=== PATIENT | male | born 1955 | race Caucasian/White ===

== ENCOUNTER 2020-05-05 08:43 | Outpatient (CLI) | payer BC, SELFPAY ==
--- NOTE | ~2020-05-05 | CT_ITS ---
EXAMINATION: CT lung screening DATE: 05/05/2020 09:36 INDICATION: History of tobacco use TECHNIQUE: Computed tomography (CT) of the chest was performed without intravenous contrast. The dose -length product was 301.52 mGy-cm. Automated exposure control and iterative reconstruction technique were employed. COMPARISON: None FINDINGS: Heart size normal. No significant pleural or pericardial effusion. No thoracic lymphadenopa thy. Heart size normal. There is atherosclerosis of the aorta and coronary arteries. There is a 2 mm nonobstructing left renal stone. There is moderate emphysema. No endobronchial lesions. No suspicious pulmonary nodules or masses. Mild thoracic spondylosis. There is accentuated thoracic kyphosis. IMPRESSION: 1. Lung-RADS category 1: Negative. Continue annual screening with noncontrast low-dose chest CT in 12 months. Reviewed, dictated and finalized at location B. IMPRESSION: 1. Lung-RADS category 1: Negative. Continue annual screening with noncontrast l ow-dose chest CT in 12 months.
== END 2020-05-05 08:44 | disposition home or self-care (01) ==
PROVIDERS: PCP Internal Medicine; Visit Provider Internal Medicine
DX: Z12.2 Encounter for screening for malignant neoplasm of respiratory organs (principal); Z87.891 Personal history of nicotine dependence
CPT/HCPCS: G0297

== ENCOUNTER 2020-11-26 10:27 | Outpatient (CLI) | payer BC, SELFPAY ==
--- NOTE | ~2020-11-26 | XR_ITS ---
XR knee RT 3V DATE: 11/26/2020 10:52 INDICATION: Medial knee pain after stepping into a hole TECHNIQUE: [place], AP, lateral views COMPARISON: None FINDINGS: No fracture or dislocation or joint effusion. Joint spaces are relatively preserved. No r adiopaque intra-articular loose body or chondrocalcinosis is detected. There is prominent popliteal artery calcification. IMPRESSION: No fracture or joint effusion Reviewed, dictated and finalized at location A.
== END 2020-11-26 10:28 | disposition home or self-care (01) ==
PROVIDERS: PCP Internal Medicine; Visit Provider Internal Medicine
DX: S89.90XA Unspecified injury of unspecified lower leg, initial encounter (principal); X58.XXXA Exposure to other specified factors, initial encounter
CPT/HCPCS: 73562

== ENCOUNTER 2021-03-01 02:17 | Day surgery (SDC) | payer BC, SELFPAY ==
[2021-02-17 13:38] VITALS: BMI 34.7
[2021-03-01 08:17] VITALS: BP 136/82; PULSE 90; RESP 18; TEMP 36.2; O2SAT 95; BMI 35.0
--- NOTE | 2021-03-01 08:18 | WPDANESEPPF ---
Anes - Initial Pre Proc Eval Procedure: Operation Date: 03/01/21 09:00 Proposed Procedures p Screening Colonoscopy - Tom Leyva MD Date/Time: 03/01/21 08:18 Surgeon: Tom Leyva MD Pre Op Diagnosis: neoplasm screening Patient Data Age: 65 Gender: M Height: 1.78 m Weight: 110 kg Allergies Allergy/AdvReac Type Severity Reaction Status Date / Time No Known Allergies Allergy Verified 03/01/21 08:15 Home Medications Medication Instructions Recorded Confirmed Type fenofibrate nanocrystallized 48 mg 48 mg PO DAILY #90 tablet 05/19/20 02/17/21 Rx tablet sitagliptin 100 mg tablet See Rx Instructions .ROUTE 08/31/20 02/17/21 Rx .COMPLEX #90 tablet atorvastatin 80 mg tablet See Rx Instructions .ROUTE 09/03/20 02/17/21 Rx .COMPLEX #90 tablet ezetimibe 10 mg tablet See Rx Instructions .ROUTE 09/03/20 02/17/21 Rx .COMPLEX #90 tablet doxazosin 4 mg tablet 4 mg PO DAILY #90 tablet 12/03/20 02/17/21 Rx diclofenac sodium 75 mg 75 mg PO BID #60 tablet 12/18/20 02/17/21 Rx tablet,delayed release sod picosulf 10 mg-magnes 3.5 160 ml PO DAILY #160 ml 02/10/21 03/01/21 Rx gram-citric 12 gram/160 mL oral solution Patient hx anesthesia problems: none Family hx anesthesia problems: none PMFSH Past Medical History Medical History Arthritis of both hips Arthritis of right knee Benign essential hypertension DM w/o complication type II Hemoglobin A1c less than 7.0% 5.20 september 2020 High cholesterol Other and unspecified hyperlipidemia Tobacco abuse Family History Family History Mother Family history of malignant neoplasm of breast in first degree relative Other Carcinoma of colon Social History Social History Smoking packs per day: 1 Smoking cigarettes per day: 20.0 Years smoked: 40 Smoking pack-years: 40.00 Smoking status: Current every day smoker Tobacco type: cigarettes Second hand tobacco smoke exposure: Yes Alcohol intake: current Drinks per week: 4 Substance use: never Substance use type: does not use Living arrangements: with family 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 Questions were solicited and answers provided to the satisfaction of the patient/family/POA.
--- NOTE | 2021-03-01 08:21 | WPDGICN ---
Assessment and Plan Assessment and plan (1) Encounter for screening colonoscopy: Code(s): Z12.11 - Encounter for screening for malignant neoplasm of colon Status: Acute Assessment and Plan: Patient presents for screening colonoscopy. Further recommendations will be given after endoscopy. GI Consult Note Consult date/time: 03/01/21 08:21 HPI: Jason Vides is a 65 year old male Presents for screening colonoscopy. Patient reports that his current weight appetite bowel movements are normal. Patient denies abdominal pain. Reports his last colonoscopy was about 8 years ago. Family history is significant both an uncle and grandfather have had colon cancer. Review of Systems Review of Systems: All systems reviewed & are unremarkable except as noted in HPI and below PMFSH Past Medical History Medical History Arthritis of both hips Arthritis of right knee Benign essential hypertension DM w/o complication type II Hemoglobin A1c less than 7.0% 5.20 september 2020 High cholesterol Other and unspecified hyperlipidemia Tobacco abuse Family History Family History Mother Family history of malignant neoplasm of breast in first degree relative Other Carcinoma of colon Social History Social History Smoking packs per day: 1 Smoking cigarettes per day: 20.0 Years smoked: 40 Smoking pack-years: 40.00 Smoking status: Current every day smoker Tobacco type: cigarettes Second hand tobacco smoke exposure: Yes Alcohol intake: current Drinks per week: 4 Substance use: never Substance use type: does not use Living arrangements: with family 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 Gender identity (if verbalized by the patient): Male Spiritual care concerns: No Meds Home Medications and Allergies Home Medications Medication Instructions Recorded Confirmed Type fenofibrate nanocrystallized 48 mg 48 mg PO DAILY #90 tablet 05/19/20 02/17/21 Rx tablet sitagliptin 100 mg tablet See Rx Instructions .ROUTE 08/31/20 02/17/21 Rx .COMPLEX #90 tablet atorvastatin 80 mg tablet See Rx Instructions .ROUTE 09/03/20 02/17/21 Rx .COMPLEX #90 tablet ezetimibe 10 mg tablet See Rx Instructions .ROUTE 09/03/20 02/17/21 Rx .COMPLEX #90 tablet doxazosin 4 mg tablet 4 mg PO DAILY #90 tablet 12/03/20 02/17/21 Rx diclofenac sodium 75 mg 75 mg PO BID #60 tablet 12/18/20 02/17/21 Rx tablet,delayed release sod picosulf 10 mg-magnes 3.5 160 ml PO DAILY #160 ml 02/10/21 03/01/21 Rx gram-citric 12 gram/160 mL oral solution Allergies Allergy/AdvReac Type Severity Reaction Status Date / Time No Known Allergies Allergy Verified 03/01/21 08:15 Vital Signs Vital Signs - 24 hr 03/01/21 08:17 Temperature 97.1 F L Pulse Rate 90 Respiratory Rate 18 Blood Pressure 136/82 Pulse Oximetry 95 Exam Narrative: Physical exam reveals patient to be alert. Vital signs stable. HEENT exam is unremarkable. Patient is anicteric. Lungs are clear to auscultation and percussion. Heart is without murmur or extra sounds. Abdominal exam bowel sounds are present soft nontender with no organomegaly. Digital external rectal exam is normal.
[2021-03-01] MEDS: LACTATED RINGERS 1,000 ML 150 ML IV CONT (08:30)
[2021-03-01 08:31] LABS: Glucose Point of Care 118 mg/dl (65-105)
[2021-03-01 09:09] VITALS: BP 105/67; PULSE 74; RESP 21; O2SAT 98
[2021-03-01 09:19] VITALS: BP 116/74; PULSE 71; RESP 22; O2SAT 95
[2021-03-01 09:29] VITALS: BP 115/72; PULSE 69; RESP 18; O2SAT 96
== END 2021-03-01 09:44 | disposition home or self-care (01) ==
PROVIDERS: PCP Internal Medicine; Visit Provider Internal Medicine Gastroenterology
PROC: 0DJD8ZZ Inspection of Lower Intestinal Tract, Via Natural or Artificial Opening Endoscopic (ICD-10-PCS; CPT 45378; principal; 2021-03-01 09:00)
DX: Z12.11 Encounter for screening for malignant neoplasm of colon (principal); D12.5 Benign neoplasm of sigmoid colon; D12.3 Benign neoplasm of transverse colon; K57.30 Diverticulosis of large intestine without perforation or abscess without bleeding; I10 Essential (primary) hypertension; E11.9 Type 2 diabetes mellitus without complications; E78.00 Pure hypercholesterolemia, unspecified; E78.5 Hyperlipidemia, unspecified; M16.0 Bilateral primary osteoarthritis of hip; M17.11 Unilateral primary osteoarthritis, right knee; F17.210 Nicotine dependence, cigarettes, uncomplicated
CPT/HCPCS: 45385; 82948; 88305; J2704; J7120

== ENCOUNTER 2021-04-05 10:34 | Outpatient (CLI) | payer BC, SELFPAY ==
--- NOTE | ~2021-04-05 | XR_ITS ---
EXAMINATION: XR lg joint inject/asp w image DATE: 04/05/2021 11:33 INDICATION: Unilateral primary osteoarthritis, left hip. TECHNIQUE: A time-out was performed to verify the patient's name, date of , and procedure to b e performed. The procedure including the risks, benefits, and alternatives was discussed with the pat ient. Risks discussed included bleeding and infection. The patient understood the risks and agreed to proceed. The skin overlying the left hip joint was prepped and draped in usual sterile fashion. An esthetic was administered with 1% lidocaine subcutaneously. A 22 G needle was advanced under fluoros copic guidance into the joint. Injection of 1 mL of Omnipaque 240 confirmed intra-articular position of the needle. Subsequently, injectate consisting of 5 mL 1% lidocaine and 2 mL 10 mg/mL Kenalog wa s instilled. The needle was removed and the entry site was cleaned and dressed. There were no immed iate complications. Fluoroscopy exposure time was 0.1 minutes. The total number of images was 2. FINDINGS: Real-time fluoroscopy demonstrates the needle in the left hip joint. Patient's pain prior t o procedure:11/23. Patient's pain following the procedure: 10/24. IMPRESSION: 1. Fluoroscopy guided left hip joint injection of local anesthetic and steroid with decrease in the p atient's presenting pain. Reviewed, dictated and finalized at location A. IMPRESSION: 1. Fluoroscopy guided left hip joint injection of local anesthetic and steroid with decrease in the patient's presenting pain.
== END 2021-04-05 10:35 | disposition home or self-care (01) ==
LOC: ANHIMG 10:36
PROVIDERS: PCP Internal Medicine; Visit Provider Orthopaedic Surgery
DX: M16.12 Unilateral primary osteoarthritis, left hip (principal)
CPT/HCPCS: 20610; 77002; J3301; Q9966

== ENCOUNTER → 2021-04-12 12:07 | Outpatient (CLI) | payer BC, SELFPAY ==
--- NOTE | ~2021-04-12 | MR_ITS ---
EXAMINATION: MR knee RT wo con DATE: 04/12/2021 13:09 INDICATION: Right knee pain and difficulty walking TECHNIQUE: Magnetic resonance imaging (MRI) of the right knee was performed without intravenous contr ast. Sequences included coronal PD-weighted FSE, coronal PD-weighted FS FSE, sagittal T2-weighted FS E, sagittal PD-weighted FS FSE and axial PD weighted fat saturated FSE. COMPARISON: None. FINDINGS: Medial compartment: Complex tear of the posterior body and posterior horn of the medial meniscus. There is mild medial ex trusion of the body. The posterior horn is smaller than the anterior horn consistent with secondary l oss of meniscal tissue identified displacement or degeneration. There is extensive deep cartilage los s throughout the weightbearing medial femoral condyle which reaches/near full-thickness anteriorly wh ere there is irregular cortical contour and mild subarticular edema. Less severe partial thickness ca rtilage loss without degenerative subchondral changes along the medial third of the medial tibial dennis teau. Lateral compartment: Lateral meniscus is normal. Partial-thickness chondral fissuring without degenerative subchondral marivel nges along the posterior margin of the lateral tibial plateau as well as along the medial margin darlene g the shoulder of the intercondylar eminence. Patellofemoral compartment: Full and near full-thickness trochlear chondral ulceration with underlying cortical irregularity and prominent subarticular edema at the central and inferior aspect of the medial trochlea and with small central subchondral osteophytes at the trochlear groove and medial side of the lateral trochlea. Cho ndral swelling with mild surface regularity at the caudal aspect of the patellar apical ridge. Ligaments and tendons: Anterior and posterior cruciate ligaments are normal. The medial collateral ligament and fibular noemi ateral ligament complex are normal. Small enthesophytes and mild tendinopathy at the patellar inserti on of the distal quadriceps tendon. Patellar tendon is normal. The visualized medial and lateral hams tring tendons as well as the iliotibial band are normal. Fluid: Small right knee joint effusion. No loose osteochondral bodies identified. There is moderate amount o f fluid within the semimembranosus bursa which extends approximately 7 cm in length, up to 2.4 cm in orthogonal width and 7 mm in orthogonal thickness. Osseous/other: Normal marrow signal aside from the previous noted degenerative subarticular edema. No fracture or pa thologic marrow replacing process. IMPRESSION: 1. Complex medial meniscal tear with loss of meniscal tissue along the posterior horn. 2. Moderate osteoarthritis with extensive moderate and high-grade chondral malacia medial compartment , mild with high-grade trochlear chondral malacia in the patellofemoral compartment and mild with in the lateral compartment small regions of moderate grade chondromalacia at the lateral tibial plateau. 3. Small right knee joint effusion. 5. Semimembranosus bursitis. Reviewed, dictated and finalized at location A. IMPRESSION: 1. Complex medial meniscal tear with loss of meniscal tissue along the posterio r horn. 2. Moderate osteoarthritis with extensive moderate and high-grade chondral macy crystal medial compartment, mild with high-grade trochlear chondral malacia in the patellofemoral compartment and mild with in the lateral compartment small regio ns of moderate grade chondromalacia at the lateral tibial plateau. 3. Small right knee joint effusion. 5. Semimembranosus bursitis.
== END ==
PROVIDERS: Visit Provider Orthopaedic Surgery
DX: M25.461 Effusion, right knee (principal); M17.11 Unilateral primary osteoarthritis, right knee; S83.231A Complex tear of medial meniscus, current injury, right knee, initial encounter; X58.XXXA Exposure to other specified factors, initial encounter
CPT/HCPCS: 73721

== ENCOUNTER → 2021-06-21 15:38 | Outpatient (REF) | payer BC, SELFPAY | LOC: ANHLAB 15:38 | PROVIDERS: Visit Provider Nurse Practitioner | DX: B07.8 Other viral warts (principal) | CPT/HCPCS: 88305 ==

== ENCOUNTER 2021-10-26 09:59 | Outpatient (CLI) | payer BC, SELFPAY ==
--- NOTE | 2021-10-26 10:39 | ECG_ITS ---
Measurements Intervals [place] Rate: 81 P: 57 SD: 174 QRS: -23 QRSD: 89 T: 34 QT: 356 QTc: 414 Interpretive Statements SINUS RHYTHM BORDERLINE LEFT AXIS DEVIATION Electronically Signed On 10-26-2021 12:10:19 CDT by Richie Toth M.D.
[2021-10-26 11:06] LABS: Basophils Percent Auto 0.5 % (0.2-1.2); Eosinophils Absolute Auto 0.2 K/mm3 (0-0.3); Eosinophils Percent Auto 2.8 % (0-4.4); Hematocrit 42.9 % (42.0-52.0); Hemoglobin 13.6 g/dL (14.0-18.0); Immature Granulocyte Absolute 0.02 K/mm3 (0.00-0.031); Immature Granulocyte Percent A 0.2 % (0-0.5); Lymphocytes Absolute Auto 1.49 K/mm3 (0.9-3.2); Lymphocytes Percent Auto 17.7 % (18.3-44.2); Mean Corpuscular HGB Conc 31.7 g/dl (32-36); Mean Corpuscular Hemoglobin 32.9 pg (26-34); Mean Corpuscular Volume 103.6 fl (80-100); Mean Platelet Volume 9.9 fl (7.4-10.4); Monocytes Absolute Auto 0.7 K/mm3 (0.1-0.6); Monocytes Percent Auto 8.4 % (2.6-8.5); Neutrophils Absolute Auto 5.9 K/mm3 (1.3-6.7); Neutrophils Percent Auto 70.4 % (45.5-73.1); Platelet Count Result 207 k/mm3 (150-375); Red Blood Count 4.14 M/mm3 (4.6-6.20); Red Cell Distribution Width 12.6 % (11.5-14.5); White Blood Count 8.4 K/mm3 (4.5-10.0)
[2021-10-26 11:15] LABS: Albumin Level 3.8 g/dL (3.5-5.1)
[2021-10-26 11:17] LABS: Anion Gap 6 mmol/L (8-16); Blood Urea Nitrogen 8 mg/dL (9-20); Calcium 8.3 mg/dL (8.4-10.2); Carbon Dioxide 28 mmol/L (22-30); Chloride 104 mmol/L (98-107); Estimated Glomerular Filt Rate > 60; Glucose 115 mg/dL (65-110); Potassium 3.9 mmol/L (3.4-5.0); Sodium 138 mmol/L (137-145)
[2021-10-26 11:18] LABS: Hemoglobin A1C 5.6 % (<5.7)
[2021-10-26 11:20] LABS: Urine Cotinine NEGATIVE
== END 2021-10-26 10:00 | disposition home or self-care (01) ==
LOC: ANHSURGERY 10:03
PROVIDERS: Anesthesiology; PCP Internal Medicine; Visit Provider Orthopaedic Surgery
DX: M16.12 Unilateral primary osteoarthritis, left hip (principal); E11.9 Type 2 diabetes mellitus without complications; Z01.818 Encounter for other preprocedural examination
CPT/HCPCS: 80048; 80307; 82040; 83036; 85025; 87081; 93005

== ENCOUNTER 2021-11-09 01:10 | Day surgery (SDC) | payer BC, SELFPAY ==
--- NOTE | 2021-10-26 09:57 | PC.NURSE ---
Report to the Outpatient Waiting Room, entrance under the green pavilion located off [facility], at time _0600_ on date _11/09/21_. OR Time: _0730_. - You and your visitor will be asked a series of questions to screen for COVID 19 for your protection. - A mask is required within the hospital. One visitor will be allowed to accompany the patient into the hospital. Patients visitor will be instructed to remain with patient at all times or leave the building. VISITING HOURS 10AM-8PM, USE MAIN ENTRANCE. Preoperative COVID Testing Requirements: NONE Patients may have clear liquids (water, carbonated beverages, clear teas, apple juice) until 3 hours prior to surgery (0430 AM) with a maximum of 20 ounces. - No food from midnight until time of surgery Take the following medications with a SIP of water the morning of surgery: _BUPROPION_ Medications to discontinue _DICLOFENAC - PER DR. NAVA'S INSTRUCTIONS ASK AT 11/02/21 APPT_ Please no deodorant, or body powder the day of surgery. No jewelry (including any body piercings) or valuables the day of surgery, leave them at home. Please take a shower or bath the night before, or the morning of, surgery with an antibacterial soap. Wear comfortable, loose fitting clothing. - Jewelry must be removed prior to entering the operating room. Rings and piercings that are not removed may be cut off. - The hospital will not accept responsibility for valuables. - Please leave all valuables, including medications, at home the day of surgery. If you are going home after surgery, a licensed lift driver must drive you home. - NO public transportation without another adult. - We recommend that an adult stay with you for 24 hours following discharge. - We also recommend that you do not drive, make important decision, drink alcoholic beverages, or take any drugs that were not prescribed by your health care provider for at least 24 hours after your discharge time. Follow any additional instructions given to you from DR. NAVA. Instructions given to ____PT and asked if any additional questions and then verbalized understanding. Patient advised to call surgeon office or pre surgery nurse liaison [phone] if any additional questions.
[2021-10-26 10:19] VITALS: BP 138/76; PULSE 88; RESP 20; TEMP 36.8; O2SAT 96; BMI 32.4
[2021-11-09] VITALS (13 sets, daily range): BP systolic 102–144; BP diastolic 59–95; PULSE 77–110; RESP 12–18; TEMP 35.7–36.7; O2SAT 90–100
--- NOTE | ~2021-11-09 | XR_ITS ---
EXAMINATION: XR hip LT min 2V DATE: 11/09/2021 11:05 INDICATION: Postoperative evaluation following left total hip arthroplasty TECHNIQUE: Anteroposterior and lateral views of the left hip were obtained. COMPARISON: 11/02/2021 FINDINGS: Interval placement of a noncemented left total hip arthroplasty which appears well seated in near kayleen tomic alignment. Expected subcutaneous gas in the postoperative bed. No fractures identified. IMPRESSION: 1. Left total hip arthroplasty, negative for postoperative purposes. Reviewed, dictated and finalized at location B.
--- NOTE | ~2021-11-09 | XR_ITS ---
EXAMINATION: XR surgery orthopedic DATE: 11/09/2021 10:09 INDICATION: Anterior approach left total hip arthroplasty TECHNIQUE: A single fluoroscopic image of the bilateral hips in the relatively lateral projection was obtained during procedure performed by Dr. Brown. Radiologist was not present for the imaging or proc edure. The amount of fluoroscopy time used during this procedure was 0.3 minutes. COMPARISON: 03/30/2021 FINDINGS: Interval placement of a left total hip arthroplasty. Portions of the proximal diaphysis of the left f emur are unable to be visualized due to overpenetration. IMPRESSION: 1. Fluoroscopy utilized during left total hip arthroplasty. See procedure note for further detail. Reviewed, dictated and finalized at location B.
[2021-11-09] MEDS: LACTATED RINGERS 1,000 ML 30 ML IV CONT ×2 (06:38→10:50)
[2021-11-09] MEDS: ACETAMINOPHEN 500 MG TABLET 1000 MG PO (06:39)
[2021-11-09] MEDS: TRANEXAMIC ACID 1,000MG/ISO100 1,000 MG/100 ML BAG 200 MG IVPB (06:43)
[2021-11-09 06:48] LABS: Glucose Point of Care 112 mg/dl (65-105)
--- NOTE | 2021-11-09 06:49 | WPDANESEPPF ---
Anes - Initial Pre Proc Eval Procedure: Operation Date: 11/09/21 07:30 Proposed Procedures p Left Total Hip Arthroplasty, Anterior Approach - Cisco Brown MD Date/Time: 11/09/21 06:49 Surgeon: Cisco Brown MD Pre Op Diagnosis: oa left hip Patient Data Age: 66 Gender: M Height: 1.8 m Weight: 104.6 kg Last Vital Signs Temp 36.8 C 10/26/21 10:19 Pulse 88 10/26/21 10:19 Resp 20 10/26/21 10:19 BP 138/76 10/26/21 10:19 Pulse Ox 96 10/26/21 10:19 Allergies Allergy/AdvReac Type Severity Reaction Status Date / Time No Known Allergies Allergy Verified 11/09/21 06:24 Home Medications Medication Instructions Recorded Confirmed Type bupropion HCl (smoking deter) 150 150 mg PO BID #60 tablet 03/30/21 11/09/21 Rx mg tablet,12 hr sustained-release(smoking deterrent) diclofenac sodium 75 mg 75 mg PO BID #90 tablet 10/15/21 11/09/21 Rx tablet,delayed release atorvastatin 80 mg QAM 10/26/21 11/09/21 History doxazosin 4 mg PO QAM 10/26/21 11/09/21 History ezetimibe 10 mg QAM 10/26/21 11/09/21 History fenofibrate nanocrystallized 48 mg PO QAM 10/26/21 11/09/21 History sitagliptin [Januvia] 100 mg QAM 10/26/21 11/09/21 History polysaccharide iron complex 150 mg 150 mg PO DAILY #30 cap 10/27/21 11/09/21 Rx iron capsule rivaroxaban 10 mg tablet 10 mg PO DAILY #14 tablet 11/02/21 11/09/21 Rx Laboratory Tests 11/09/21 06:37 POC Capillary Glucose 112 mg/dl H mg/dl (65-105) Patient hx anesthesia problems: none Family hx anesthesia problems: none Results Review: All pre-operative results and documents have been reviewed as part of the pre-operative evaluation. [facility] Past Medical History Medical History Arthritis of both hips Arthritis of right knee Benign essential hypertension DM w/o complication type II Hemoglobin A1c less than 7.0% 5.20 september 2020 High cholesterol Other and unspecified hyperlipidemia Tobacco abuse Family History Family History Mother Family history of malignant neoplasm of breast in first degree relative Other Carcinoma of colon Social History Social History Smoking packs per day: 1 Smoking cigarettes per day: 20.0 Years smoked: 40 Smoking pack-years: 40.00 Smoking status: Former smoker Tobacco type: cigarettes Second hand tobacco smoke exposure: Yes Smoking end date: 09/21/21 Additional smoking assessment comments: PT DENIES ALL FORMS OF TOBACCO USE AT THIS TIME Alcohol intake: current Drinks per week: 4 Substance use: never Substance use type: does not use Living arrangements: with family 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 Informed Consent: The patient's anesthetic plan and its attendant risks and benefits were discussed with the patient/family/POA. Questions were solicited and answers provided to the satisfaction of the patient/family/POA.
--- NOTE | 2021-11-09 07:07 | WPDHPUPDATE1 ---
History and Physical Update Update Date/Time: 11/09/21 07:07 History and Physical has been reviewed, including an updated exam of the patient. There are NO changes in the patient's condition. Risks, benefits, and alternatives have been discussed and questions answered. Patient agrees to proceed with procedure.
[2021-11-09] MEDS: ceFAZolin 2 GM/D5W 50 ML 2 GM/50 ML BAG IVPB ×3 (07:30→23:56)
[2021-11-09] MEDS: ceFAZolin SODIUM 1 GM VIAL IV PUSH (10:37)
--- NOTE | 2021-11-09 10:46 | P.OP_ITS ---
Procedure Note - Detailed Date of Procedure 11/09/21 Pre-op Diagnosis oa left hip Post-op Diagnosis Same Procedure Performed left hip replacement through an anterior approach Surgeon Cisco Brown MD Soft Water Mechanic Jackie Flor Anesthesia General Description of Procedure The patient was identified, proper side identified, and then taken to the operating room. After general anesthetic induction and intubation, he was then transferred over to the [place] table positioning supine in the usual manner for an anterior hip procedure. Positioning was assessed fluoroscopically after which the left hip and thigh was prepped and draped in the usual sterile fashion. 10 cc of the arthroplasty solution was injected into the subcutaneous tissue over the TFL muscle belly. Longitudinal incision was made over the muscle belly. Subcutaneous tissue was sharply dissected down to the TFL fascia which was incised in line with the fibers the TFL. The TFL was retracted laterally and the rectus femoris medially. The rectus fascia was divided. The branches of the anterior femoral circumflex artery were identified and cauterized allowing for access to the hip capsule. Pericapsular fatty tissue was removed. The capsule was divided in an inverted T-fashion. The neck cut was made one fingerbreadth above the level of the lesser trochanter. Head fragment was removed and the acetabulum cleared of debris. Acetabulum was sequentially reamed under fluoroscopic visualization up to 55 mm. A 56 G7 cup was inserted under fluoroscopic visualization in approximately 40? of abduction and 15? of anteversion following the patient's anatomy. It was further secured with a single screw and then the liner for the size 36 head was placed. The femur was then delivered up into the wound with the appropriate releases. The proximal femur was prepared for the size 12 micro plasty high offset stem and a trial reduction was undertaken. Overall alignment was assessed fluoroscopically in the AP and lateral views noting it to be satisfactory. Trial components were removed. The wound was irrigated with pulsatile lavage. The real micro plasty stem was then seated. This construct with a 36, +0 head gave excellent yarsanism of leg lengths and stability so the real 36 +0 ceramic head was attached to the neck of the femoral component after it had been cleaned and dried. Hip was again reduced and stability assessed, and it was noted to be stable. After final lavage of the wound, the periarticular tissues were injected with an additional 50 cc of the arthroplasty solution. 1 g of tranexamic acid was left in the wound. The capsule was reapproximated with #2 Vicryl suture, the TFL fascia with 0 looped PDS suture, the subcu with two of strata fix in the deeper layers and two of strata fix subcuticular stitch. Tissue adhesive was used for the skin. Sterile dressing was applied. He tolerated the procedure well. He was transferred back to a bed and taken to recovery area in stable condition. There were no known intraoperative complications. Estimated blood loss was 300 cc; 125 cc given back via Cell Saver He received perioperative antibiotics. Estimated Blood Loss 300 ( 125 cc cell Saver Cerner) Drains No Packing No Pathology None sent Complications No immediate complications Condition Stable Disposition PACU
[2021-11-09] MEDS: fentaNYL CITRATE INJ (*CRX) 100 MCG/2 ML VIAL 25 MCG IV PUSH ×6 (11:16→11:43)
[2021-11-09 11:34] LABS: Glucose Point of Care 129 mg/dl (65-105)
[2021-11-09 12:00] LABS: Hemoglobin 12.1 g/dL (14.0-18.0)
--- NOTE | 2021-11-09 12:34 | ADMGEN ---
This patient, Jason Vides, was admitted to Medical Room 240-01. Patient/family oriented to hospital policies and general routines including ID bracelet, bed and alarms, visiting hours, pain management, procedures, bathroom and other care routines, personal items, smoking policy, room service/diet, and visiting hours. Information on how to activate the Rapid Response Team has been discussed. Patient/Family are encouraged to report perceived risks to care and to ask questions if they do not understand what they are told or what they should do.
[2021-11-09] MEDS: SODIUM CHLORIDE 0.9% IV 1,000 ML 125 ML IV CONT (12:53)
[2021-11-09] MEDS: oxyCODONE HCL (*CRX) 5 MG TAB IR PO ×4 (12:53→20:40)
[2021-11-09] MEDS: KETOROLAC 15 MG/ML VIAL (*BKC) IV PUSH ×3 (13:27→23:56)
--- NOTE | 2021-11-09 14:19 | PM.IMCN ---
Assessment and Plan Assessment and plan (1) DM w/o complication type II: Code(s): E11.9 - Type 2 diabetes mellitus without complications Status: Acute Assessment and Plan: Patient's last hemoglobin A1c on 10/26/2021 was 5.8. Will resume patient's home Januvia and have blood glucose monitoring before meals and at bedtime. (2) BPH (benign prostatic hyperplasia): Code(s): N40.0 - Benign prostatic hyperplasia without lower urinary tract symptoms Status: Acute Assessment and Plan: Patient's home doxazosin has been resumed patient is having no difficulty urinating postoperatively. (3) High cholesterol: Code(s): E78.00 - Pure hypercholesterolemia, unspecified Status: Acute Assessment and Plan: Patient's home cholesterol medications have been resumed. This will be followed as an outpatient. (4) Arthritis of both hips: Code(s): M16.0 - Bilateral primary osteoarthritis of hip Status: Chronic Assessment and Plan: Patient is status post left anterior hip arthroplasty. Patient is doing very well and worked with physical therapy today. Will defer all pain management, VTE prophylaxis, and orthopedic issues to Orthopedic surgeon. HPI Data of Consult Consult date: 11/09/21 Requesting Physician: Cisco Brown MD Primary Care Provider: Kevin Gaston DO Consult Narrative Narrative: Jason Vides is a 66 year old male who presented to the hospital with a known history of osteoarthritis to bilateral hips and was to undergo an anterior left hip arthroplasty which was done today. Patient is doing extremely well postoperatively. Upon evaluation patient was working with physical therapy and was able to get up and walk to the bathroom and use a walker to climb 1 stair and get into a chair. Patient is denying any pain to his left hip. Patient denies any chest pain, shortness breast, dyspnea on exertion, lightheadedness, dizziness, syncopal, or near syncopal episodes. Patient states he has really never noticed any shortness of breath or dyspnea on exertion. Patient states he has no cough or sputum production. 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 Patient states he does have a history of diabetes mellitus, BPH, dyslipidemia, and hypertension. Patient states he takes all medications at home without any difficulty. Patient states he does not typically monitor his blood glucose levels at home and his last hemoglobin A1c on 10/26/2021 was 5.8. Review of Systems Review of Systems: A 12 point review of systems was completed patient all pertinent positive and negative per HPI the remainder are unremarkable. [facility] Past Medical History Medical History (Updated 11/09/21 @ 14:23 by Evelyne Gilman APRN) Arthritis of both hips Arthritis of right knee Benign essential hypertension BPH (benign prostatic hyperplasia) DM w/o complication type II Hemoglobin A1c less than 7.0% 5.20 september 2020 High cholesterol Other and unspecified hyperlipidemia Tobacco abuse Surgical History Surgical History (Updated 11/09/21 @ 14:22 by Evelyne Gilman APRN) History of appendectomy History of tonsillectomy Status post correction of deviated nasal septum Status post ORIF of fracture of ankle Family History Family History Mother Family history of malignant neoplasm of breast in first degree relative Other Carcinoma of colon Social History Social History Smoking packs per day: 1 Smoking cigarettes per day: 20.0 Years smoked: 40 Smoking pack-years: 40.00 Smoking status: Former smoker Second hand tobacco smoke exposure: Yes Alcohol intake: current Drinks per week: 4 Substance use: lizeth
[2021-11-09 16:20] LABS: Glucose Point of Care 170 mg/dl (65-105)
[2021-11-09] MEDS: SENNA/DOCUSATE SODIUM TABLET 2 TAB PO (17:22)
[2021-11-09 20:06] LABS: Glucose Point of Care 128 mg/dl (65-105)
[2021-11-09] MEDS: buPROPion HCL SR (12 HR) 150 MG TAB PO (20:40)
[2021-11-09] MEDS: FAMOTIDINE 20 MG TABLET PO (20:41)
[2021-11-10] MEDS: oxyCODONE HCL (*CRX) 5 MG TAB IR PO ×3 (00:33→08:19)
[2021-11-10 04:17] VITALS: BP 100/54; PULSE 84; RESP 18; TEMP 36.3; O2SAT 90
[2021-11-10 05:34] LABS: Basophils Percent Auto 0.2 % (0.2-1.2); Eosinophils Percent Auto 0.1 % (0-4.4); Hematocrit 34.9 % (42.0-52.0); Hemoglobin 10.9 g/dL (14.0-18.0); Immature Granulocyte Absolute 0.04 K/mm3 (0.00-0.031); Immature Granulocyte Percent A 0.4 % (0-0.5); Lymphocytes Absolute Auto 1.74 K/mm3 (0.9-3.2); Lymphocytes Percent Auto 18.4 % (18.3-44.2); Mean Corpuscular HGB Conc 31.2 g/dl (32-36); Mean Corpuscular Volume 105.8 fl (80-100); Mean Platelet Volume 9.8 fl (7.4-10.4); Monocytes Absolute Auto 0.9 K/mm3 (0.1-0.6); Monocytes Percent Auto 9.6 % (2.6-8.5); Neutrophils Absolute Auto 6.8 K/mm3 (1.3-6.7); Neutrophils Percent Auto 71.3 % (45.5-73.1); Platelet Count Result 233 k/mm3 (150-375); Red Cell Distribution Width 13.1 % (11.5-14.5); White Blood Count 9.5 K/mm3 (4.5-10.0)
[2021-11-10 05:46] LABS: Anion Gap 7 mmol/L (8-16); Blood Urea Nitrogen 18 mg/dL (9-20); Calcium 7.6 mg/dL (8.4-10.2); Carbon Dioxide 26 mmol/L (22-30); Chloride 105 mmol/L (98-107); Estimated CRCL calculation 99 ml/min; Estimated Glomerular Filt Rate > 60; Glucose 130 mg/dL (65-110); Sodium 138 mmol/L (137-145)
[2021-11-10] MEDS: KETOROLAC 15 MG/ML VIAL (*BKC) IV PUSH (06:09)
[2021-11-10 07:23] LABS: Glucose Point of Care 145 mg/dl (65-105)
--- NOTE | 2021-11-10 07:29 | PM.DS ---
DS: Admitting Diagnosis Discharge Date November 10, 2021 Admitting Diagnosis Left hip osteoarthritis DS: Discharge Diagnosis Discharge Diagnosis (1) History of total left hip replacement: Code(s): Z96.642 - Presence of left artificial hip joint Status: Acute Assessment and Plan: 66-year-old male who underwent left total hip replacement on 11/09/2021. Admitted for observation and plan to discharge 11/10/2021. Uneventful overnight stay. Incision is clean and dry. Patient was able to tolerate therapy yesterday and plan to do so again today. Discharge instructions reviewed with patient in detail. Plan to see him in our office in 2 weeks for wound check. He was informed to call our office with any questions or concerns prior to his next appointment. DS: Summary Hospital Course Reason for hospitalization: Observation after outpatient procedure Hospital Course: 66-year-old male admitted for observation after total left hip arthroplasty. Uneventful overnight stay. Surgical incision is clean and dry. Dressing was changed this morning. Patient received therapy after surgical procedure yesterday and plan to do so again today prior to discharge. Status at Discharge Functional status at discharge: uses cane/walker Overall status at discharge: patient is progressing back to baseline Time Spent with Patient Time attestation: Total time spent providing and/or coordinating discharge services: Time spent: Less than 30 minutes Exam Const: General: comfortable and no acute distress Eyes: General: appearance normal, both eyes and all related structures Resp: Effort & Inspection: normal respiratory effort GI: Inspection: non-distended GI Palp: No Tenderness to palpation present (GI) Neuro: Sensory Exam: normal sensation Extrem: Other: Exam of the left lower extremity reveals a clean and dry surgical dressing. He is able to wiggle his toes and dorsiflex/plantar flex the foot without issue. Calves negative. Neurovascular status unremarkable. Psych: Mental Status: mental status grossly normal DS: Data Data Completed and Pending Labs on day of discharge: Labs from last 24 hours 11/10/21 11/10/21 11/10/21 07:18 04:44 04:44 WBC 9.5 RBC 3.30 L Hgb 10.9 L Hct 34.9 L MCV 105.8 H MCH 33.0 MCHC 31.2 L RDW 13.1 Plt Count 233 MPV 9.8 Immature Gran % (Auto) 0.4 Neut % (Auto) 71.3 Lymph % (Auto) 18.4 [place] % (Auto) 9.6 H Eos % (Auto) 0.1 Baso % (Auto) 0.2 Lymph # (Auto) 1.74 [place] # (Auto) 0.9 H Eos # (Auto) 0.0 Baso # (Auto) 0.0 Abs Immat Gran (auto) 0.04 H Absolute Neuts (auto) 6.8 H Absolute Nucleated RBC 0.0 Nucleated RBC % 0.0 Sodium 138 Potassium 4.0 Chloride 105 Carbon Dioxide 26 Anion Gap 7 L BUN 18 D Creatinine 0.80 Estim Creat Clear Calc 99 Estimated GFR > 60 Glucose 130 H POC Capillary Glucose 145 H Calcium 7.6 L Blood Type Antibody Screen 11/09/21 11/09/21 11/09/21 20:02 16:16 11:50 WBC RBC Hgb 12.1 L Hct 38.0 L MCV MCH MCHC RDW Plt Count MPV Immature Gran % (Auto) Neut % (Auto) Lymph % (Auto) [place] % (Auto) Eos % (Auto) Baso % (Auto) Lymph # (Auto) [place] # (Auto) Eos # (Auto) Baso # (Auto) Abs Immat Gran (auto) Absolute Neuts (auto) Absolute Nucleated RBC Nucleated RBC % Sodium Potassium Chloride Carbon Dioxide Anion Gap BUN Creatinine Estim Creat Clear Calc Estimated GFR Glucose POC Capillary Glucose 128 H 170 H Calcium Blood Type Antibody Screen 11/09/21 11/09/21 11:29 06:31 WBC RBC Hgb Hct MCV MCH MCHC RDW Plt Count MPV Immature Gran % (Auto) Neut % (Auto) Lymph % (Auto) [place] % (Auto) Eos % (Auto) Baso % (Auto) Lymph # (Auto) [place] # (Auto) Eos # (Auto) Baso # (Auto) Abs Immat
[2021-11-10] MEDS: ceFAZolin 2 GM/D5W 50 ML 2 GM/50 ML BAG IVPB (07:52)
[2021-11-10] MEDS: ATORVASTATIN 40 MG TABLET 80 MG BY MOUTH (08:00)
[2021-11-10] MEDS: FENOFIBRATE,MICRONIZED 48 MG TABLET PO (08:01)
[2021-11-10] MEDS: POLYSACCHARIDE IRON COMPLEX 150 MG CAPSULE PO (08:01)
[2021-11-10] MEDS: EZETIMIBE 10 MG TABLET BY MOUTH (08:01)
[2021-11-10] MEDS: RIVAROXABAN 10 MG TABLET PO (08:01)
[2021-11-10] MEDS: FAMOTIDINE 20 MG TABLET PO (08:01)
[2021-11-10] MEDS: SENNA/DOCUSATE SODIUM TABLET 2 TAB PO (08:01)
[2021-11-10] MEDS: DOXAZOSIN MESYLATE 4 MG TABLET PO (08:02)
[2021-11-10] MEDS: polyethylene glycoL 3350 17 GM POWD.PACK PO (08:02)
[2021-11-10] MEDS: buPROPion HCL SR (12 HR) 150 MG TAB PO (08:02)
--- NOTE | 2021-11-10 10:34 | WPDANESPN ---
Anes - Prog Note Post-Op Date/Time: 11/10/21 10:34 Cardiovascular status: normal Respiratory status: normal Airway patency: baseline Mental status: baseline Post-Op hydration status: normal Vital Signs: Last Vital Signs Temp 97.3 F L 11/10/21 04:17 Pulse 84 11/10/21 04:17 Resp 18 11/10/21 04:17 BP 100/54 L 11/10/21 04:17 Pulse Ox 90 11/10/21 04:17 Pain Score (VAS): 07/26 I/O: Intake & Output 11/09/21 11/10/21 11/10/21 23:59 07:59 15:59 Intake Total 1290 615 Output Total 900 Balance 1290 -285 Laboratory Tests 11/10/21 04:44 11/10/21 04:44 11/09/21 11/09/21 11/09/21 11:29 11:50 16:16 WBC RBC Hgb 12.1 L Hct 38.0 L MCV MCH MCHC RDW Plt Count MPV Immature Gran % (Auto) Neut % (Auto) Lymph % (Auto) [place] % (Auto) Eos % (Auto) Baso % (Auto) Lymph # (Auto) [place] # (Auto) Eos # (Auto) Baso # (Auto) Abs Immat Gran (auto) Absolute Neuts (auto) Absolute Nucleated RBC Nucleated RBC % Sodium Potassium Chloride Carbon Dioxide Anion Gap BUN Creatinine Estim Creat Clear Calc Estimated GFR Glucose POC Capillary Glucose 129 H 170 H Calcium 11/09/21 11/10/21 11/10/21 20:02 04:44 04:44 WBC 9.5 RBC 3.30 L Hgb 10.9 L Hct 34.9 L MCV 105.8 H MCH 33.0 MCHC 31.2 L RDW 13.1 Plt Count 233 MPV 9.8 Immature Gran % (Auto) 0.4 Neut % (Auto) 71.3 Lymph % (Auto) 18.4 [place] % (Auto) 9.6 H Eos % (Auto) 0.1 Baso % (Auto) 0.2 Lymph # (Auto) 1.74 [place] # (Auto) 0.9 H Eos # (Auto) 0.0 Baso # (Auto) 0.0 Abs Immat Gran (auto) 0.04 H Absolute Neuts (auto) 6.8 H Absolute Nucleated RBC 0.0 Nucleated RBC % 0.0 Sodium 138 Potassium 4.0 Chloride 105 Carbon Dioxide 26 Anion Gap 7 L BUN 18 D Creatinine 0.80 Estim Creat Clear Calc 99 Estimated GFR > 60 Glucose 130 H POC Capillary Glucose 128 H Calcium 7.6 L 11/10/21 07:18 WBC RBC Hgb Hct MCV MCH MCHC RDW Plt Count MPV Immature Gran % (Auto) Neut % (Auto) Lymph % (Auto) [place] % (Auto) Eos % (Auto) Baso % (Auto) Lymph # (Auto) [place] # (Auto) Eos # (Auto) Baso # (Auto) Abs Immat Gran (auto) Absolute Neuts (auto) Absolute Nucleated RBC Nucleated RBC % Sodium Potassium Chloride Carbon Dioxide Anion Gap BUN Creatinine Estim Creat Clear Calc Estimated GFR Glucose POC Capillary Glucose 145 H Calcium Post-procedural complaints: none Patient Feedback: Patient satisfied with anesthetic care.
== END 2021-11-10 10:39 | disposition home or self-care (01) ==
LOC: ANHSURGERY 10:44 → ANH2MED 12:29
PROVIDERS: PCP Internal Medicine; Visit Provider Orthopaedic Surgery
PROC: (CPT 27130; principal; 2021-11-09 07:30)
DX: M16.12 Unilateral primary osteoarthritis, left hip (principal); I10 Essential (primary) hypertension; E11.9 Type 2 diabetes mellitus without complications; E78.49 Other hyperlipidemia; E78.00 Pure hypercholesterolemia, unspecified; N40.0 Benign prostatic hyperplasia without lower urinary tract symptoms; Z79.84 Long term (current) use of oral hypoglycemic drugs; Z79.01 Long term (current) use of anticoagulants; Z87.891 Personal history of nicotine dependence; E66.9 Obesity, unspecified; Z68.32 Body mass index [BMI] 32.0-32.9, adult
CPT/HCPCS: 27130; 36415; 73502; 80048; 82948; 85014; 85018; 85025; 86850; 86900; 86901; 97110; 97116; 97161; 97165; 97530; 97535; A9270; C1776; J0171; J0330; J0690; J1100; J1170; J1885; J2250; J2270; J2370; J2405; J2704; J2710; J2795; J3010; J3370; J7030; J7120

== ENCOUNTER 2022-02-14 11:00 | Outpatient (RCR) | payer BC, SELFPAY ==
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
--- NOTE | 2022-02-14 11:52 | PTOPEVAL ---
PHYSICAL THERAPY DISCHARGE REPORT 02-14-22 Refer to the clinical summary below, for his status today, compared to the initial evaluation. He will be discharged at this time. And to continue with his home exercises and increase activity level. Thank you for referring Jason Vides to [facility].? Please review, sign, date and return this Discharge report NITIN. I agree with and certify that the following plan of care is medically necessary. Referring Physician Date Attending Provider: Santosh Nixon APN Subjective Information Tor reports: hip is better, Query Text:As Reported By Patient/ still stiff with sitting and Family first start walking, takes 1-2 minutes of walking to get it limbered up; both legs still feel little weak; to see dr next week, expect him to release me then; doing exercises at home, but need to walk more, going about 10-15 min at time without any problems; have cut grass and did ok; Pain Assessment Pain Scale Pain Scale Used Numeric (1 - 10) Self Report Pain Assessment Left Hip(s) Pain Description Soreness,Tightness Pain Frequency Acute,Intermittent Other Pain Description stiff Lowest Pain Intensity 0 Greatest Pain Intensity 2 Other Pain Aggravating Factors after sitting then stand up to walk; Additional Pain Score Comments able to state and observe 3/3 THR precautions; at home, has returned to his normal activities ; but has returned to work yet; is sleeping in the recliner still, due to comfort and not able to tolerate lying on his L side; reinforced pillow between his knees Pain Relief Interventions Used By Medication,Position Change Patient Other Alleviating Interventions tylenol PRN at night to help with sleeping Gross Lower Extremity Range of Motion supine with leg over edge of Comments mat: quad/ant hip flexibility: R hip extension 0' with knee flexion 80'; L hip extension (-5'); Gross Lower Extremity Strength functional strength testing L LE: - single leg stand x 12 seconds
== END 2022-02-14 16:17 | disposition home or self-care (01) ==
LOC: ANHPT 11:00
PROVIDERS: PCP Internal Medicine; Visit Provider Nurse Practitioner
DX: Z47.1 Aftercare following joint replacement surgery (principal); Z96.642 Presence of left artificial hip joint
CPT/HCPCS: 97014; 97110; 97112; 97161; 97530; G0283

== ENCOUNTER 2023-11-09 09:21 | Outpatient (CLI) | payer MEDICARE, SELFPAY ==
--- NOTE | ~2023-11-09 | XR_ITS ---
EXAMINATION: XR chest 2V 11/09/2023 09:32 INDICATION: Cough PROCEDURE: 2 view chest COMPARISON: No prior studies for comparison. FINDINGS: The lungs are clear. The lungs are hyperinflated which is consistent with, but not diagnost ic of chronic obstructive pulmonary disease. The cardiomediastinal silhouette is within normal limit s. There are no pleural effusions. There is no pneumothorax suspected. IMPRESSION: 1: NO ACUTE CARDIOPULMONARY DISEASE. Reviewed, dictated and finalized at location B.
== END 2023-11-09 09:22 ==
LOC: MICIMG 09:22
PROVIDERS: PCP Nurse Practitioner; Visit Provider Nurse Practitioner
DX: R05.9 Cough, unspecified (principal); R06.02 Shortness of breath
CPT/HCPCS: 71046